=== PATIENT | male | born 1950 | race Caucasian/White ===

== ENCOUNTER 2016-10-31 19:23 | Emergency (ER) | payer BC, MEDICARE, OTHER ==
[2016-10-31] MEDS ORDERED: OXYCODONE HCL IR 5 MG TABLET PO ONE (20:01)
--- NOTE | 2016-10-31 20:04 | ER Document Report ---
ED Medical Screen (RME) - General Chief Complaint: Fall Stated Complaint: FALL,RIB PAIN Time Seen by Provider: 10/31/16 20:00 Notes: 66-year-old male, chief complaint of fall first against a TV stand and then onto the floor, fell onto his right side, reports persistent sharp pain and cannot get comfortable. States it hurts to take a deep breath. This did happen this morning. Patient is on a blood thinner (Plavix), has a history of hepatitis C. he is also on pain management and takes 10 mg of oxycodone for breakthrough pain although has not had this recently and is requesting it. He denies head injury, loss of consciousness, vomiting. - Related Data Allergies/Adverse Reactions: acetaminophen [From Lortab] Allergy (Verified 10/31/16 19:40) hydrocodone [From Lortab] Allergy (Verified 10/31/16 19:40) Past Medical History Renal/ Medical History: Denies: Hx Peritoneal Dialysis Physical Exam - Vital signs Vitals: Temp Pulse Resp BP Pulse Ox 99.6 F 80 20 130/77 H 95 10/31/16 19:40 10/31/16 19:40 10/31/16 19:40 10/31/16 19:40 10/31/16 19:40 - Respiratory Respiratory status: No: Respiratory distress Chest status: Tender - Very tender in the mid right ribs, no crepitus Breath sounds: No: Decreased air movement, Rales, Rhonchi, Stridor, Wheezing - Abdominal Tenderness: Tender - Very tender in the right upper quadrant areas with ecchymosis over the abdomen Course - Re-evaluation Re-evalutation: Patient screamed in pain with palpation of the right upper quadrant and right rib areas, these areas were noted to have ecchymosis. I did discuss ultrasound versus CAT scan, however because of patient's advanced age, Plavix, hepatitis C , and pain with signs of trauma CAT scan will be ordered at this time. - Vital Signs Vital signs: Temp Pulse Resp BP Pulse Ox 99.6 F 80 20 130/77 H 95 10/31/16 19:40 10/31/16 19:40 10/31/16 19:40 10/31/16 19:40 10/31/16 19:40
[2016-10-31] MEDS ORDERED: MORPHINE SULFATE 10 MG/ML INJ IV ONE (20:16)
--- NOTE | 2016-10-31 20:27 | ER Document Report ---
ED General - General Chief Complaint: Fall Stated Complaint: FALL,RIB PAIN Time Seen by Provider: 10/31/16 20:00 Mode of Arrival: Ambulatory Information source: Patient Notes: 66-year-old male presents after a mechanical fall with complaints of right lower rib pain on the anterior aspect. Patient denies any fevers or chills admits to shortness breath difficulty taking a deep breath in secondary to the pain. Patient states he does take insulin and has bruising from insulin. Patient's mechanical fall was earlier today - HPI Onset: This morning Onset/Duration: Sudden Quality of pain: Achy Severity: Moderate Pain Level: 3 Associated symptoms: Chest pain, Hurts to breath, Shortness of breath Exacerbated by: Movement, Coughing, Deep breathing Relieved by: Denies Similar symptoms previously: No Recently seen / treated by doctor: No - Related Data Allergies/Adverse Reactions: acetaminophen [From Lortab] Allergy (Verified 10/31/16 20:09) hydrocodone [From Lortab] Allergy (Verified 10/31/16 20:09) Past Medical History - Social History Smoking Status: Never Smoker Cigarette use (# per day): No Chew tobacco use (# tins/day): No Smoking Education Provided: No Family History: Reviewed & Not Pertinent Patient has suicidal ideation: No Patient has homicidal ideation: No Renal/ Medical History: Denies: Hx Peritoneal Dialysis Review of Systems - Review of Systems Notes: REVIEW OF SYSTEMS: CONSTITUTIONAL : Denies fever, chills, or sweats. Denies recent illness. EENT: Denies eye, ear, throat, or mouth pain or symptoms. Denies nasal or sinus congestion or discharge. Denies throat, tongue, or mouth swelling or difficulty swallowing. CARDIOVASCULAR: Denies chest pain. Denies palpitations or racing or irregular heart beat. Denies ankle edema. RESPIRATORY: Denies cough, cold, or chest congestion. Denies shortness of breath, difficulty breathing, or wheezing. GASTROINTESTINAL: Denies abdominal pain or distention. Denies nausea, vomiting , or diarrhea. Denies blood in vomitus, stools, or per rectum. Denies black, tarry stools. Denies constipation. GENITOURINARY: Denies difficulty urinating, painful urination, burning, frequency, blood in urine, or discharge. MUSCULOSKELETAL: Admits to chest wall pain SKIN: Denies rash, lesions or sores. HEMATOLOGIC : Denies easy bruising or bleeding. LYMPHATIC: Denies swollen, enlarged glands. NEUROLOGICAL: Denies confusion or altered mental status. Denies passing out or loss of consciousness. Denies dizziness or lightheadedness. Denies headache. Denies weakness or paralysis or loss of use of either side. Denies problems with gait or speech. Denies sensory loss, numbness, or tingling. Denies seizures. PSYCHIATRIC: Denies anxiety or stress. Denies depression, suicidal ideation, or homicidal ideation. ALL OTHER SYSTEMS REVIEWED AND NEGATIVE. Dictation was performed using [employer] recognition software PHYSICAL EXAMINATION: GENERAL: Well-appearing, well-nourished and in no acute distress. HEAD: Atraumatic, normocephalic. EYES: Pupils equal round and reactive to light, extraocular movements intact, sclera anicteric, conjunctiva are normal. ENT: Nares patent, oropharynx clear without exudates. Moist mucous membranes. NECK: Normal range of motion, supple without lymphadenopathy LUNGS: Breath sounds clear to auscultation bilaterally and equal. No wheezes rales or rhonchi. Anterior chest wall tenderness ribs 12/17/2011 on the right with ecchymosis HEART: Regular rate and rhythm without murmurs ABDOMEN: Soft, nontender, nondistended abdomen. No guarding, no rebound. No masses appreciated. Musculoskeletal: Normal range of motion, no pitting or edema. No cyanosis. NEUROLOGICAL: Cranial nerves grossly intact. Normal speech, normal gait. Normal sensory, motor exams PSYCH: Normal mood, normal affect. SKIN: Old ecchymosis on abdomen from insulin injections, new ecchymosis on the right anterior ribs Physical Exam - Vital signs Vitals: Temp Pulse Resp BP Pulse Ox 99.6 F 80 20 130/77 H 95 10/31/16 19:40 10/31/16 19:40 10/31/16 19:40 10/31/16 19:40 10/31/16 19:40 Course - Re-evaluation Re-evalutation: 10/31/16 20:27 CT imaging pending at this time patient has probable rib fractures 10/31/16 21:38 CT imaging was performed without contrast due to patient's refusal, CT chest abdomen pelvis without contrast note no fractures, chronic changes of his COPD is noted. Patient will be sent home on incentive spirometer rib contusions pain control very strict return precautions After performing a Medical Screening Examination, I estimate there is LOW risk for INTRACRANIAL HEMORRHAGE, UNSTABLE SPINE FRACTURE, CENTRAL CORD SYNDROME, CAUDA EQUINA, THORACIC AORTIC DISSECTION, PNEUMOTHORAX, PERFORATED BOWEL, RUPTURED ABDOMINAL AORTIC ANEURYSM, ACUTE TENDON RUPTURE, COMPARTMENT SYNDROME, or OPEN FRACTURE, thus I consider the discharge disposition reasonable. Also, there is no evidence or peritonitis, sepsis, or toxicity. I have reevaluated this patient multiple times and no significant life threatening changes are noted. The patient and I have discussed the diagnosis and risks, and we agree with discharging home to follow-up with their primary doctor with the understanding that symptoms and presentations can change. We also discussed returning to the Emergency Department immediately if new or worsening symptoms occur. We have discussed the symptoms which are most concerning (e.g., bloody stool, fever, changing or worsening pain, vomiting) that necessitate immediate return. - Vital Signs Vital signs: Temp Pulse Resp BP Pulse Ox 99.6 F 80 20 130/77 H 95 10/31/16 19:40 10/31/16 19:40 10/31/16 19:40 10/31/16 19:40 10/31/16 19:40 - Laboratory Result Diagrams: 10/31/16 20:30 Laboratory results interpreted by me: 10/31/16 20:30 Sodium 136.7 L Chloride 93 L BUN 22 H Glucose 239 H Direct Bilirubin 0.5 H - Diagnostic Test Radiology reviewed: Image reviewed, Reports reviewed - COPD changes noted Discharge - Discharge Clinical Impression: Contusion of rib on right side Qualifiers: Encounter type: initial encounter Qualified Code(s): S20.211A - Contusion of right front wall of thorax, initial encounter Fall Qualifiers: Encounter type: initial encounter Qualified Code(s): W19.XXXA - Unspecified fall, initial encounter Condition: Stable Disposition: HOME, SELF-CARE Instructions: Rib Contusion ([facility]) Additional Instructions: Follow up with your physician tomorrow for further care or return to the ED IMMEDIATELY if symptoms worsen or new concerns occur. If you cannot afford to follow up with your primary care physician a list of low cost clinics have been provided at the end of your discharge papers as well. Prescriptions: Oxycodone HCl/Acetaminophen [Percocet 5-325 mg Tablet] 1 - 2 tab PO Q4H PRN #25 tablet PRN Reason:
[2016-10-31] MEDS ORDERED: HYDROMORPHONE HCL INJ/PF 2 MG/ML AMPULE IV ONE ×2 (20:40→21:37)
[2016-10-31 20:57] LABS: ALANINE AMINOTRANSFERASE 36 U/L (21-72); ALBUMIN 4.7 g/dL (3.5-5.0); ALKALINE PHOSPHATASE 100 U/L (38-126); ANION GAP 15 (5-19); ASPARTATE AMINO TRANSFERASE 29 U/L (17-59); BILIRUBIN,DIRECT 0.5 mg/dL (0.0-0.4); BILIRUBIN,TOTAL 1.2 mg/dL (0.2-1.3); BLOOD UREA NITROGEN 22 mg/dL (7-20); CALCIUM 9.4 mg/dL (8.4-10.2); CARBON DIOXIDE 29 mmol/L (22-30); CHLORIDE 93 mmol/L (98-107); CREATININE RESULT 1.09 mg/dL (0.52-1.25); GLUCOSE 239 mg/dL (75-110); POTASSIUM 3.6 mmol/L (3.6-5.0); SODIUM 136.7 mmol/L (137-145); TOTAL PROTEIN 7.7 g/dL (6.3-8.2)
--- NOTE | 2016-10-31 21:12 | RADIOLOGY REPORT (SQ) ---
EXAM DESCRIPTION: CT CHEST WITHOUT; CT ABD/PELVIS NO ORAL OR IV COMPLETED DATE/TIME: 10/31/2016 9:00 pm REASON FOR STUDY: fall rib pain COMPARISON: None. TECHNIQUE: CT scan of the chest performed without intravenous contrast using helical scanning techni que. Images reviewed with lung, soft tissue and bone windows. Reconstructed coronal and sagittal MPR images reviewed. All images stored on PACS. All CT scanners at this facility use dose modulation, iterative reconstruction, and/or weight based d osing when appropriate to reduce radiation dose to as low as reasonably achievable (ALARA). [facility]: Dose Right [facility]: CareDose [facility]: Dose Right [facility]: [employer] 4D [facility]: [employer] RADIATION DOSE: Up-to-date CT equipment and radiation dose reduction techniques were employed. CTDIv ol: 16.5 mGy. DLP: 1218 mGy-cm. mGy. LIMITATIONS: None. FINDINGS: AXILLAE: No adenopathy. CHEST WALL: No masses. No subcutaneous air. LUNGS: Patchy interstitial and ground-glass opacities in the lungs, largely upper lobe but also subpl eural right lower lobe dependently. This may reflect chronic interstitial lung disease. There is no evidence of acute consolidation or pneumothorax or pleural effusion. PLEURA: No effusions. No calcifications. THYROID: No masses or significant asymmetry. HILAR AND MEDIASTINAL STRUCTURES: No identified masses or abnormal nodes. AORTA AND GREAT VESSELS: No aneurysm. HEART: No pericardial effusion. Marked Coronary calcification. HARDWARE AND LIFELINES: None. BONES: Osteopenic. No spine, sternal or grossly displaced rib fracture. OTHER: No other significant finding. IMPRESSION: 1. Lung opacities look interstitial, potentially chronic disease. No evidence of fractu re, fusion, pneumothorax or overt mediastinal hematoma. COMPARISON: None. TECHNIQUE: CT scan of the abdomen and pelvis performed without intravenous contrast and withoutoral contrast using helical scanning technique with dynamic intravenous contrast injection. Images review ed with lung, soft tissue and bone windows. Reconstructed coronal and sagittal MPR images reviewed. All images stored on PACS. All CT scanners at this facility use dose modulation, iterative reconstruction, and/or weight based d osing when appropriate to reduce radiation dose to as low as reasonably achievable (ALARA). [facility]: Dose Right [facility]: SureCare [facility]: Dose Right [facility]: [employer] 4D [facility]: [employer] Controller RADIATION DOSE: Up-to-date CT equipment and radiation dose reduction techniques were employed. CTDIv ol: 16.5 mGy. DLP: 1218 mGy-cm.mGy. LIMITATIONS: None. FINDINGS: LIVER: No laceration. Fatty. No perihepatic fluid. SPLEEN: No gross laceration or adjacent fluid. PANCREAS: No masses. No significant calcifications. No adjacent inflammation or peripancreatic flui d collections. Pancreatic duct not dilated. GALLBLADDER: Contracted or absent. ADRENAL GLANDS: No significant masses or asymmetry. RIGHT KIDNEY AND URETER: No perinephric fluid or obstruction. No worrisome mass. LEFT KIDNEY AND URETER: No solid masses. Assessment limited by lack of IV contrast. No significant ca lcification. No hydronephrosis or hydroureter. AORTA AND VESSELS: Normal caliber densely calcified aorta. No retroperitoneal hematoma. RETROPERITONEUM: No retroperitoneal adenopathy, hemorrhage or masses. APPENDIX: Normal. LARGE AND SMALL BOWEL: No dilatation. No masses. No wall thickening. ABDOMINAL WALL: No hernia or masses. PERITONEAL CAVITY: No free air. No free fluid. No peritoneal implants or masses. PELVIS: No mass or free fluid. Normal bladder. BONES: Osteopenic. Postoperative changes in the lumbar spine. No fracture appreciated. OTHER: No other significant finding. IMPRESSION: 1. No acute abdominopelvic abnormality. 2. Chest findings are separately described in t he impression above. TECHNICAL DOCUMENTATION: JOB ID: [id number] Quality ID # [id number]: Final reports with documentation of one or more dose reduction techniques (e.g., Au tomated exposure control, adjustment of the mA and/or kV according to patient size, use of iterative reconstruction technique) 2010 [employer]- All Rights Reserved
--- NOTE | 2016-10-31 21:12 | RADIOLOGY REPORT (SQ) ---
EXAM DESCRIPTION: CT CHEST WITHOUT; CT ABD/PELVIS NO ORAL OR IV COMPLETED DATE/TIME: 10/31/2016 9:00 pm REASON FOR STUDY: fall rib pain COMPARISON: None. TECHNIQUE: CT scan of the chest performed without intravenous contrast using helical scanning techni que. Images reviewed with lung, soft tissue and bone windows. Reconstructed coronal and sagittal MPR images reviewed. All images stored on PACS. All CT scanners at this facility use dose modulation, iterative reconstruction, and/or weight based d osing when appropriate to reduce radiation dose to as low as reasonably achievable (ALARA). [facility]: Dose Right [facility]: CareDose [facility]: Dose Right [facility]: [employer] 4D [facility]: [employer] RADIATION DOSE: Up-to-date CT equipment and radiation dose reduction techniques were employed. CTDIv ol: 16.5 mGy. DLP: 1218 mGy-cm. mGy. LIMITATIONS: None. FINDINGS: AXILLAE: No adenopathy. CHEST WALL: No masses. No subcutaneous air. LUNGS: Patchy interstitial and ground-glass opacities in the lungs, largely upper lobe but also subpl eural right lower lobe dependently. This may reflect chronic interstitial lung disease. There is no evidence of acute consolidation or pneumothorax or pleural effusion. PLEURA: No effusions. No calcifications. THYROID: No masses or significant asymmetry. HILAR AND MEDIASTINAL STRUCTURES: No identified masses or abnormal nodes. AORTA AND GREAT VESSELS: No aneurysm. HEART: No pericardial effusion. Marked Coronary calcification. HARDWARE AND LIFELINES: None. BONES: Osteopenic. No spine, sternal or grossly displaced rib fracture. OTHER: No other significant finding. IMPRESSION: 1. Lung opacities look interstitial, potentially chronic disease. No evidence of fractu re, fusion, pneumothorax or overt mediastinal hematoma. COMPARISON: None. TECHNIQUE: CT scan of the abdomen and pelvis performed without intravenous contrast and withoutoral contrast using helical scanning technique with dynamic intravenous contrast injection. Images review ed with lung, soft tissue and bone windows. Reconstructed coronal and sagittal MPR images reviewed. All images stored on PACS. All CT scanners at this facility use dose modulation, iterative reconstruction, and/or weight based d osing when appropriate to reduce radiation dose to as low as reasonably achievable (ALARA). [facility]: Dose Right [facility]: SureCare [facility]: Dose Right [facility]: [employer] 4D [facility]: [employer] RADIATION DOSE: Up-to-date CT equipment and radiation dose reduction techniques were employed. CTDIv ol: 16.5 mGy. DLP: 1218 mGy-cm.mGy. LIMITATIONS: None. FINDINGS: LIVER: No laceration. Fatty. No perihepatic fluid. SPLEEN: No gross laceration or adjacent fluid. PANCREAS: No masses. No significant calcifications. No adjacent inflammation or peripancreatic flui d collections. Pancreatic duct not dilated. GALLBLADDER: Contracted or absent. ADRENAL GLANDS: No significant masses or asymmetry. RIGHT KIDNEY AND URETER: No perinephric fluid or obstruction. No worrisome mass. LEFT KIDNEY AND URETER: No solid masses. Assessment limited by lack of IV contrast. No significant ca lcification. No hydronephrosis or hydroureter. AORTA AND VESSELS: Normal caliber densely calcified aorta. No retroperitoneal hematoma. RETROPERITONEUM: No retroperitoneal adenopathy, hemorrhage or masses. APPENDIX: Normal. LARGE AND SMALL BOWEL: No dilatation. No masses. No wall thickening. ABDOMINAL WALL: No hernia or masses. PERITONEAL CAVITY: No free air. No free fluid. No peritoneal implants or masses. PELVIS: No mass or free fluid. Normal bladder. BONES: Osteopenic. Postoperative changes in the lumbar spine. No fracture appreciated. OTHER: No other significant finding. IMPRESSION: 1. No acute abdominopelvic abnormality. 2. Chest findings are separately described in t he impression above. TECHNICAL DOCUMENTATION: JOB ID: [id number] Quality ID # [id number]: Final reports with documentation of one or more dose reduction techniques (e.g., Au tomated exposure control, adjustment of the mA and/or kV according to patient size, use of iterative reconstruction technique) 2010 [employer]- All Rights Reserved
[2016-11-01 06:25] VITALS: BP 129/74
== END 2016-10-31 23:45 | disposition home or self-care (01) ==
LOC: ER 19:23
DX: S20.211A Contusion of right front wall of thorax, initial encounter (principal); R07.81 Pleurodynia; R06.02 Shortness of breath; W19.XXXA Unspecified fall, initial encounter; Z79.4 Long term (current) use of insulin
CPT/HCPCS: 96376; 99284; 96374; 96375; 36415; 80053; 71250; 74176; J2270; J1170